=== PATIENT | female | born 1965 | race Two or more races ===

== ENCOUNTER 2019-01-14 06:27 | Emergency (ER) | payer OTHER ==
[~2019-01-14] VITALS: Ht 170.2 cm; Wt 72.6 kg
[~2019-01-14 06:27] MED LIST: ALBU2.5V13 NEB; IBUP-1955 PO; NAPR220C15 PO
--- NOTE | 2019-01-14 06:31 | NUR ---
BIB FROM HOME ON PRIVATE VEHICLE. BROUGHT IN TO ER BY WHEELCHAIR. AAOX4. BREATHING EVEN AND UNLABORED. C/O R FOOT PAIN S/P SOLID WOOD BAR STOOL FELL ON HER FOOT. RANGE ON MOTION LIMITED ON ANKLE. UNABLE TO MOVE 1ST TO 4TH DIGIT ON R FOOT, PT RATE HER PAIN 10/10. TO ER BED 3. AWAITING MD FOR EVAL.
[2019-01-14] MEDS ORDERED: HYDROCODONE/APAP 5/325MG 1 EACH TABLET ONE (06:47)
[2019-01-14] MEDS ORDERED: HYDROCODONE/APAP 5/325MG 1 EACH TABLET PO ONE (07:00)
--- NOTE | 2019-01-14 07:45 | NUR ---
Patient discharged to home in stable condition. Written and verbal after care instructions given. Patient verbalizes understanding of instruction. Crutches dispensed. Pt instructed on proper use of crutches. Patient able to demonstrate correct use of crutches.
[2019-01-14 07:46] VITALS: BP 132/70
== END 2019-01-14 07:51 | disposition home or self-care (01) ==
LOC: ER 06:28
DX: S92.421A Displaced fracture of distal phalanx of right great toe, initial encounter for closed fracture (principal); J45.909 Unspecified asthma, uncomplicated; M54.9 Dorsalgia, unspecified; G89.29 Other chronic pain; W07.XXXA Fall from chair, initial encounter; Y93.89 Activity, other specified; Y92.89 Other specified places as the place of occurrence of the external cause; Y99.8 Other external cause status
CPT/HCPCS: 73630-TC